=== PATIENT | female | born 2000 | race Caucasian/White ===

== ENCOUNTER 2018-12-25 13:14 | Emergency (ER) | payer OTHER ==
[~2018-12-25] VITALS: Ht 160 cm; Wt 62.0 kg
[~2018-12-25 13:14] MED LIST: ACET-2116 PO
[2018-12-25 14:55] VITALS: BP 126/72
== END 2018-12-25 15:05 | disposition home or self-care (01) ==
LOC: EMS 13:14
DX: F41.9 Anxiety disorder, unspecified (principal); R03.0 Elevated blood-pressure reading, without diagnosis of hypertension